=== PATIENT | male | born 1930 | race Caucasian/White ===

== ENCOUNTER 2017-03-16 22:43 | Emergency (ER) | payer MEDICARE ==
[~2017-03-16] VITALS: Ht 175.3 cm; Wt 74.6 kg
[~2017-03-16 22:43] MED LIST: ATOR10TA15 PO; DICL75TA PO; FURO20TA PO; HYDR200T3 PO; LISI-519 PO; METH2.5T PO; NIAC500T5 PO; PRED2.5T PO
[2017-03-16] MEDS ORDERED: IOHEXOL 350 MG/ML 10 ML VIAL (for RAD DIAG) IVCONTRAST ONE (22:44)
[2017-03-16 22:50] VITALS: BP 110/70; PULSE 88; RESP 16; TEMP 97.6; O2SAT 95
--- NOTE | 2017-03-16 23:40 | PD ---
HPI Chief Complaint: Dizziness Time Seen by Provider: 22:58 Travel History International Travel<30 days: No Contact w/Intl Traveler<30days: No Traveled to known affect area: No History of Present Illness HPI 87-year-old male presents to the emergency department by private transportation in the care of family for evaluation of constipation and near syncope. Patient states he is in the process of having his abdominal pain and constipation issues evaluated by his primary care provider since November. This evening after eating dinner he felt the urge to have a bowel movement and went to the bathroom and while straining to have a bowel movement he thinks he either had a near syncopal episode or syncopal episode but feels confident at this time that he did not pass out. Patient reports he did not sustain any injury does not believe but there is a small abrasion to the forehead. Patient denies any chest pain or shortness of breath. Patient denies nausea or vomiting. Patient complains of bilateral lower abdominal pain. Patient denies any back pain or pelvic pain or extremity pain. Patient states he has been having anxiety issues since 2012 when his . Patient has history of dyslipidemia, hypertension, and some type of heart disease for which she is prescribed Lasix but does not know what it is. Patient has had previous herniorrhaphy. Patient rates his current pain 0/10 intensity. PFSH Past Medical History Narrative Medical Arthritis dyslipidemia hypertension heart dysfunction diminished hearing herniorrhaphy prior tobacco use nursing notes reviewed Arthritis: Yes Cardiovascular Problems: Yes (TAKES LASIX; UNKNOWN WHY) High Cholesterol: Yes Diminished Hearing: Yes Past Surgical History Abdominal Surgery: Yes (1956---L.INGUINAL HERNIA) Tonsillectomy: Yes (1938) Social History Alcohol Use: No Tobacco Use: No Substance Use: No Allergies-Medications (Allergen,Severity, Reaction): Coded Allergies: No Known Allergies (Verified , 03/16/17) Reported Meds & Prescriptions Reported Meds & Active Scripts Active Reported Prednisone 2.5 Mg Tab 2.5 Mg PO DAILY Diclofenac Sodium DR (Diclofenac Sodium) 75 Mg Tabdr 75 Mg PO BID Methotrexate 2.5 Mg Tab 2.5 Mg PO Q7D Niacin 500 Mg Tab 500 Mg PO DAILY Hydroxychloroquine (Hydroxychloroquine Sulfate) 200 Mg Tab 200 Mg PO DAILY Takw with food Furosemide 20 Mg Tab 20 Mg PO DAILY Atorvastatin (Atorvastatin Calcium) 10 Mg Tab 10 Mg PO HS Lisinopril 5 Mg Tab 5 Mg PO DAILY Review of Systems Except as stated in HPI: all other systems reviewed are Neg General / Constitutional: No: Fever, Chills HENT: No: Congestion Cardiovascular: No: Chest Pain or Discomfort, Diaphoresis, Syncope (near syncope while straining to have a bowel movement) Respiratory: No: Shortness of Breath Gastrointestinal: Positive: Constipation, No: Nausea, Vomiting, Abdominal Pain Genitourinary: No: Dysuria Musculoskeletal: No: Myalgias, Arthralgias Skin: No Rash Neurologic: Positive: Dizziness (while straining to have BM), No: Weakness Psychiatric: No: Anxiety Hematologic/Lymphatic: No: Lymph Node Enlargement Physical Exam Narrative GENERAL: Well-developed well-nourished male in no acute distress no respiratory distress SKIN: Warm and dry. HEAD: Normocephalic. EYES: No scleral icterus. No injection or drainage. NECK: Supple, trachea midline. No JVD or lymphadenopathy. CARDIOVASCULAR: Regular rate and rhythm without murmurs, gallops, or rubs. RESPIRATORY: Breath sounds equal bilaterally. No accessory muscle use. GASTROINTESTINAL: Abdomen soft, left lower quadrant tenderness to palpation without guarding or rebound, nondistended. Rectal exam: No fissure no prolapsed hemorrhoid normal sphincter tone light brown stool large bolus of stool in the rectal vault intolerant of attempted digital disimpaction as he stated "I think going to pass out" MUSCULOSKELETAL: No cyanosis, or edema. BACK: Nontender without obvious deformity. No CVA tenderness. Data Data Last Documented VS Vital Signs Date Time Temp Pulse Resp B/P (MAP) Pulse Ox O2 Delivery O2 Flow Rate FiO2 03/16/17 23:52 74 16 135/80 (98) 75 16 134/82 (99) 71 16 118/74 (89) 03/16/17 23:17 96 03/16/17 22:50 97.6 Orders Orders Complete Blood Count With Diff (03/16/17 23:33) Comprehensive Metabolic Panel (03/16/17 23:33) Lipase (03/16/17 23:33) Lactic Acid (03/16/17 23:33) Urinalysis - C+S If Indicated (03/16/17 23:33) Ct Abd/Pel W Iv Contrast(Rout) (03/16/17 23:33) Iv Access Insert/Monitor (03/16/17 23:33) Ecg Monitoring (03/16/17 23:33) Oximetry (03/16/17 23:33) Sodium Chloride 0.9% Flush (Ns Flush) (03/16/17 23:45) Electrocardiogram (03/16/17 23:33) Troponin I (03/16/17 23:33) Orthostatic Vital Signs (03/16/17 23:33) Ct Brain W/O Iv Contrast(Rout) (03/16/17 ) Sodium Chlorid 0.9% 500 Ml Inj (Ns 500 M (03/17/17 00:30) Iohexol 350 Inj (Omnipaque 350 Inj) (03/16/17 22:44) Fleets Enema (Adult) (Fleets Enema (Adul (03/17/17 02:00) Labs Laboratory Tests Test 03/16/17 23:30 White Blood Count 9.2 TH/MM3 Red Blood Count 4.69 MIL/MM3 Hemoglobin 14.4 GM/DL Hematocrit 43.8 % Mean Corpuscular Volume 93.3 FL Mean Corpuscular Hemoglobin 30.6 PG Mean Corpuscular Hemoglobin Concent 32.9 % Red Cell Distribution Width 14.4 % Platelet Count 178 TH/MM3 Mean Platelet Volume 7.9 FL Neutrophils (%) (Auto) 87.2 % Lymphocytes (%) (Auto) 6.6 % Monocytes (%) (Auto) 4.5 % Eosinophils (%) (Auto) 0.6 % Basophils (%) (Auto) 1.1 % Neutrophils # (Auto) 8.0 TH/MM3 Lymphocytes # (Auto) 0.6 TH/MM3 Monocytes # (Auto) 0.4 TH/MM3 Eosinophils # (Auto) 0.1 TH/MM3 Basophils # (Auto) 0.1 TH/MM3 CBC Comment DIFF FINAL Differential Comment Blood Urea Nitrogen 19 MG/DL Creatinine 1.40 MG/DL Random Glucose 146 MG/DL Total Protein 6.8 GM/DL Albumin 3.3 GM/DL Calcium Level 8.6 MG/DL Alkaline Phosphatase 133 U/L Aspartate Amino Transf (AST/SGOT) 19 U/L Alanine Aminotransferase (ALT/SGPT) 26 U/L Total Bilirubin 0.8 MG/DL Sodium Level 137 MEQ/L Potassium Level 3.7 MEQ/L Chloride Level 102 MEQ/L Carbon Dioxide Level 28.4 MEQ/L Anion Gap 7 MEQ/L Estimat Glomerular Filtration Rate 48 ML/MIN Lactic Acid Level 1.1 mmol/L Troponin I LESS THAN 0.02 NG/ML Lipase 158 U/L [facility] Medical Decision Making Medical Screen Exam Complete: Yes Emergency Medical Condition: Yes Medical Record Reviewed: Yes Interpretation(s) Lactic acid: 1.1, not elevated Vital Signs Date Time Temp Pulse Resp B/P (MAP) Pulse Ox O2 Delivery O2 Flow Rate FiO2 03/16/17 23:52 74 16 135/80 (98) 75 16 134/82 (99) 71 16 118/74 (89) 03/16/17 23:17 96 03/16/17 22:50 97.6 88 16 110/70 (83) 95 CBC & BMP Diagram 03/16/17 23:30 Total Protein 6.8, Albumin 3.3 L, Calcium Level 8.6, Alkaline Phosphatase 133 H , Aspartate Amino Transf (AST/SGOT) 19, Alanine Aminotransferase (ALT/SGPT) 26, Total Bilirubin 0.8 EKG: Normal sinus rhythm rate 80 left axis deviation no acute ST elevation or injury pattern or ectopy noted CT brain w/o: CONCLUSION: 1. No acute intracranial abnormalities. 2. Mild aneurysmal dilatation of the proximal left middle cerebral artery to about 8 mm, about 6 mm on the right probably atherosclerotic in origin. No subarachnoid hemorrhage. Eleuterio Elder MD on March 17, 2017 at 1:11 Board Certified Radiologist. This report was verified electronically. CT abd/pel: CONCLUSION: 1. Moderate rectal constipation, distended to 8.4 cm. No bowel obstruction no free fluid. 2. Atrophic left kidney with small cysts. No obstructive uropathy. 3. No acute findings within the abdomen. Appendix appears normal. Eleuterio Elder MD on March 17, 2017 at 1:22 Board Certified Radiologist. This report was verified electronically. Differential Diagnosis Constipation, obstipation, diverticulitis, colitis, rectal mass, near-syncope, vasovagal syncope, arrhythmia, ACS Narrative Course IV access obtained patient placed on core worker with pulse oximetry; specimens collected and sent for resulting bedside commode provided orthostatic measurements ordered and CT abdomen and pelvis with IV contrast ordered along with CT brain noncontrast and EKG Patient given fleets enema Advice found to be grossly normal range CT abdomen and pelvis reveals no bowel obstruction large stool bolus in the rectum; CT brain noncontrast shows mild aneurysmal dilatation of the left middle cerebral artery 8 mm without evidence of bleed Patient informed of imaging results and lab results Post fleets enema patient with success and passing bowel movement: Patient is otherwise stable for outpatient management and follow-up with his primary care provider [facility] Internal Pos. & Neg. Controls: Passed Fecal Specimen Occult Blood: Negative Diagnosis Primary Impression: Constipation Qualified Codes: K59.00 - Constipation, unspecified Additional Impressions: Vasovagal near-syncope Cerebral aneurysm without rupture Referrals: Primary Care Physician call for appointment Patient Instructions: General Instructions Additional Instructions: Increase fluid hydration Add MiraLAX to daily regimen over the next 1-2 weeks May use as needed fleets enema as needed for constipation Follow-up with primary care provider Return to the emergency department for any concerns or change in condition Add dietary fiber to daily intake Med/Other Pt SpecificInfo: No Change to Meds Disposition: 01 DISCHARGE HOME Condition: Stable Natacha Hilario MD Mar 16, 2017 23:40
[2017-03-16] MEDS ORDERED: SODIUM CHLORIDE 0.9% FLUSH 10 ML FLUSH IV FLUSH PRN (23:45)
[2017-03-16 23:52] VITALS: BP_SYST 118; BP_SYST 134; BP_SYST 135; BP_DIAS 74; BP_DIAS 80; BP_DIAS 82; RESP 16
[2017-03-16 23:53] LABS: BASOPHIL # 0.1 TH/MM3 (0-0.2); BASOPHIL % 1.1 % (0.0-2.0); EOSINOPHIL # 0.1 TH/MM3 (0-0.4); EOSINOPHIL % 0.6 % (0.0-4.0); HEMATOCRIT 43.8 % (39.0-51.0); LYMPH % 6.6 % (9.0-44.0); LYMPHOCYTE # 0.6 TH/MM3 (1.0-4.8); MEAN CELL VOLUME 93.3 FL (80.0-100.0); MEAN CORPUSCULAR HEMOGLOBIN 30.6 PG (27.0-34.0); MEAN CORPUSCULAR HGB CONC 32.9 % (32.0-36.0); MONO % 4.5 % (0.0-8.0); NEUT % 87.2 % (16.0-70.0); PLATELET COUNT 178 TH/MM3 (150-450); RED BLOOD COUNT 4.69 MIL/MM3 (4.50-5.90); RED CELL DISTRIBUTION WIDTH 14.4 % (11.6-17.2); WHITE BLOOD COUNT 9.2 TH/MM3 (4.0-11.0)
[2017-03-16 23:55] LABS: HEMO FLAGS DIFF FINAL
[2017-03-17] LABS: CHLORIDE 102 MEQ/L (98-107); POTASSIUM 3.7 MEQ/L (3.5-5.1); SODIUM (NA) 137 MEQ/L (136-145)
[2017-03-17 00:03] LABS: ANION GAP 7 MEQ/L (5-15); BICARBONATE 28.4 MEQ/L (21.0-32.0); BLOOD UREA NITROGEN 19 MG/DL (7-18)
[2017-03-17 00:06] LABS: ALT (GPT) 26 U/L (12-78); AST (GOT) 19 U/L (15-37); GLOMERULAR FILTRATION RATE 48 ML/MIN (>89)
[2017-03-17 00:08] LABS: TOTAL BILIRUBIN ADULT 0.8 MG/DL (0.2-1.0)
[2017-03-17 00:09] LABS: ALKALINE PHOSPHATASE 133 U/L (45-117)
[2017-03-17] MEDS ORDERED: SODIUM CHLORID 0.9% 500 ML INJ 500 ML IV ONE (00:30)
--- NOTE | 2017-03-17 01:16 | RADRPT ---
EXAM DATE/TIME: 03/17/2017 00:44 [facility] COMPARISON: No previous studies available for comparison. INDICATIONS : Possible TIA. patient cant remember what happened to him. RADIATION DOSE: 60.88 CTDIvol (mGy) MEDICAL HISTORY : Hypercholesterolemia. SURGICAL HISTORY : Inguinal hernia repair. ENCOUNTER: Initial ACUITY: 1 day PAIN SCALE: 0/10 LOCATION: cranial TECHNIQUE: Multiple contiguous axial images were obtained of the head. Using automated exposure control and adj ustment of the mA and/or kV according to patient size, radiation dose was kept as low as reasonably a chievable to obtain optimal diagnostic quality images. DICOM format image data is available electro nically for review and comparison. FINDINGS: No acute intracranial hemorrhage, mass effect or shift. No hydrocephalus. No abnormal extra-axial flu id collections. There is some fusiform aneurysmal dilatation of the proximal left middle cerebral artery to a diamete r about 8 mm, probably atherosclerotic in origin. Proximal right middle cerebral artery also mildly d ilated to about 6 mm in diameter. No acute bony abnormalities. Visualized paranasal sinuses are clear. CONCLUSION: 1. No acute intracranial abnormalities. 2. Mild aneurysmal dilatation of the proximal left middle cerebral artery to about 8 mm, about 6 mm o n the right probably atherosclerotic in origin. No subarachnoid hemorrhage. Eleuterio Elder MD on March 17, 2017 at 1:11 Board Certified Radiologist. This report was verified electronically.
--- NOTE | 2017-03-17 01:28 | RADRPT ---
EXAM DATE/TIME: 03/17/2017 00:44 [facility] COMPARISON: No previous studies available for comparison. INDICATIONS : Constipation IV CONTRAST: 96 cc Omnipaque 350 (iohexol) IV ORAL CONTRAST: No oral contrast ingested. RADIATION DOSE: 8.37 CTDIvol (mGy) MEDICAL HISTORY : Hypercholesterolemia. SURGICAL HISTORY : Inguinal hernia repair. ENCOUNTER: Initial ACUITY: 1 day PAIN SCALE: 0/10 LOCATION: abdomen TECHNIQUE: Volumetric scanning of the abdomen and pelvis was performed. Using automated exposure control and ad justment of the mA and/or kV according to patient size, radiation dose was kept as low as reasonably achievable to obtain optimal diagnostic quality images. DICOM format image data is available electro nically for review and comparison. FINDINGS: Lung bases demonstrate minimal dependent atelectasis. No acute findings in the liver, spleen, adrenals, right kidney and pancreas. There is some cortical a trophy of the left kidney with a small cyst inferiorly. No calcified gallstones or biliary ductal dil atation. There is moderate rectal constipation which is distended to 8.4 cm. Mild constipation the remainder t he colon. No pelvic masses or adenopathy. No acute bony abnormalities. 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 CONCLUSION: 1. Moderate rectal constipation, distended to 8.4 cm. No bowel obstruction no free fluid. 2. Atrophic left kidney with small cysts. No obstructive uropathy. 3. No acute findings within the abdomen. Appendix appears normal. Eleuterio Elder MD on March 17, 2017 at 1:22 Board Certified Radiologist. This report was verified electronically.
[2017-03-17] MEDS ORDERED: SOD PHOSPHATE/SOD BIPHOSPHATE (ADULT) ENEMA 133ML RECTAL ONE (02:00)
[2017-03-17 03:15] VITALS: BP 128/72
--- NOTE | 2017-03-17 07:09 | EKG ---
Date Performed: 03/17/2017 Time Performed: 00:37:39 PTAGE: 87 years EKG: Sinus rhythm LEFT AXIS DEVIATION ABNORMAL ECG PREVIOUS TRACING : 12/07/2004 09.51 No significant change from previous tracing noted. DOCTOR: Marbin Ingram Interpretating Date/Time 03/17/2017 07:07:55
== END 2017-03-17 03:42 | disposition home or self-care (01) ==
LOC: PHED 22:43
DX: K59.00 Constipation, unspecified (principal); R55 Syncope and collapse; I67.1 Cerebral aneurysm, nonruptured; R94.31 Abnormal electrocardiogram [ECG] [EKG]; I10 Essential (primary) hypertension; E78.5 Hyperlipidemia, unspecified; H91.90 Unspecified hearing loss, unspecified ear; Z86.79 Personal history of other diseases of the circulatory system; Z87.39 Personal history of other diseases of the musculoskeletal system and connective tissue
CPT/HCPCS: 70450; 74177; 80053; 83605; 83690; 84484; 85025; 93005; 96360; 99285; J7040; Q9967

== ENCOUNTER 2017-05-11 21:47 | Emergency (ER) | payer MEDICARE ==
[~2017-05-11] VITALS: Ht 175.3 cm; Wt 77.0 kg
[2017-05-11 21:53] VITALS: BP 137/67; PULSE 60; RESP 16; TEMP 97.6; O2SAT 97
--- NOTE | 2017-05-11 22:17 | PD ---
HPI Chief Complaint: Edema Time Seen by Provider: 22:13 Travel History International Travel<30 days: No Contact w/Intl Traveler<30days: No Traveled to known affect area: No History of Present Illness HPI C/O RLE EDEMA, ONSET 1 DAY ACCORDING TO PATIENT, NOT PAINFUL, NO FEVER, NO HOGAN/CP /ABDPAIN/N/V/D/ PCP IS DR CHNOG PMHX: HTN, HYPERCHOL, (TAKES LASIX BUT UNKNOWN WHY), OSTEOPOROSIS, PFSH Past Medical History Arthritis: Yes Cardiovascular Problems: Yes (TAKES LASIX; UNKNOWN WHY) High Cholesterol: Yes Diminished Hearing: Yes Past Surgical History Abdominal Surgery: Yes (1956---L.INGUINAL HERNIA) Tonsillectomy: Yes (1938) Social History Alcohol Use: No Tobacco Use: No Substance Use: No Allergies-Medications (Allergen,Severity, Reaction): Coded Allergies: No Known Allergies (Verified Adverse Reaction, Unknown, 05/11/17) Reported Meds & Prescriptions Reported Meds & Active Scripts Active Reported Prednisone 2.5 Mg Tab 2.5 Mg PO DAILY Diclofenac Sodium DR (Diclofenac Sodium) 75 Mg Tabdr 75 Mg PO BID Methotrexate 2.5 Mg Tab 2.5 Mg PO Q7D Niacin 500 Mg Tab 500 Mg PO DAILY Hydroxychloroquine (Hydroxychloroquine Sulfate) 200 Mg Tab 200 Mg PO DAILY Takw with food Furosemide 20 Mg Tab 20 Mg PO DAILY Atorvastatin (Atorvastatin Calcium) 10 Mg Tab 10 Mg PO HS Review of Systems General / Constitutional: No: Fever Eyes: No: Visual changes HENT: No: Headaches Cardiovascular: No: Chest Pain or Discomfort Respiratory: No: Shortness of Breath Gastrointestinal: No: Abdominal Pain Genitourinary: No: Dysuria Musculoskeletal: Positive: Edema (RLE) Skin: No Rash Neurologic: No: Weakness Psychiatric: No: Depression Endocrine: No: Polydipsia Hematologic/Lymphatic: No: Easy Bruising Physical Exam Narrative GENERAL: SKIN: Warm and dry. HEAD: Atraumatic. Normocephalic. EYES: Pupils equal and round. No scleral icterus. No injection or drainage. ENT: No nasal bleeding or discharge. Mucous membranes pink and moist. NECK: Trachea midline. No JVD. CARDIOVASCULAR: Regular rate and rhythm. RESPIRATORY: No accessory muscle use. Clear to auscultation. Breath sounds equal bilaterally. GASTROINTESTINAL: Abdomen soft, non-tender, nondistended. Hepatic and splenic margins not palpable. MUSCULOSKELETAL: Extremities without clubbing, cyanosis, MILD RLE 1+ edema. No obvious deformities. NEUROLOGICAL: Awake and alert. No obvious cranial nerve deficits. Motor grossly within normal limits. Five out of 5 muscle strength in the arms and legs. Normal speech. PSYCHIATRIC: Appropriate mood and affect; insight and judgment normal. Data Data Last Documented VS Vital Signs Date Time Temp Pulse Resp B/P (MAP) Pulse Ox O2 Delivery O2 Flow Rate FiO2 05/11/17 22:32 16 97 Room Air 05/11/17 21:53 97.6 60 137/67 (90) Orders Orders Us Leg Venous Doppler (05/11/17 22:13) Complete Blood Count With Diff (05/11/17 22:13) Comprehensive Metabolic Panel (05/11/17 22:13) B-Type Natriuretic Peptide (05/11/17 22:13) Labs Laboratory Tests Test 05/11/17 22:30 White Blood Count 5.4 TH/MM3 Red Blood Count 4.10 MIL/MM3 Hemoglobin 12.8 GM/DL Hematocrit 38.4 % Mean Corpuscular Volume 93.7 FL Mean Corpuscular Hemoglobin 31.2 PG Mean Corpuscular Hemoglobin Concent 33.3 % Red Cell Distribution Width 13.9 % Platelet Count 146 TH/MM3 Mean Platelet Volume 7.8 FL Neutrophils (%) (Auto) 73.0 % Lymphocytes (%) (Auto) 16.1 % Monocytes (%) (Auto) 6.9 % Eosinophils (%) (Auto) 3.1 % Basophils (%) (Auto) 0.9 % Neutrophils # (Auto) 3.8 TH/MM3 Lymphocytes # (Auto) 0.9 TH/MM3 Monocytes # (Auto) 0.4 TH/MM3 Eosinophils # (Auto) 0.2 TH/MM3 Basophils # (Auto) 0.0 TH/MM3 CBC Comment DIFF FINAL Differential Comment Blood Urea Nitrogen 12 MG/DL Random Glucose 102 MG/DL Albumin 2.9 GM/DL Calcium Level 8.1 MG/DL Sodium Level 141 MEQ/L Potassium Level 3.5 MEQ/L Chloride Level 108 MEQ/L Carbon Dioxide Level 25.3 MEQ/L Anion Gap 8 MEQ/L [facility] Medical Decision Making Medical Screen Exam Complete: Yes Emergency Medical Condition: Yes Medical Record Reviewed: Yes Differential Diagnosis DVT V RENAL INSUFF V CHF V PERIPHERAL EDEMA Narrative Course ULTRASOUND NEG FOR DVT, NORMAL LFT'S AND NL BNP AND KIDNEY FUNCTIONS FOR AGE Diagnosis Primary Impression: Leg edema, right Referrals: Niya Chong MD FOR FURTHER CARE Patient Instructions: General Instructions, Leg Edema (ED) Additional Instructions: PLEASE FOLLOW UP WITH YOUR PRIMARY CARE DOCTOR FOR FURTHER CARE. TODAY NORMAL KIDNEY FUNCTION FOR AGE, NORMAL LIVER FUNCTIONS, ULTRASOUND NEGATIVE FOR BLOOD CLOT Disposition: 01 DISCHARGE HOME Condition: Stable Philipp Dinero MD May 11, 2017 22:17
[2017-05-11 22:48] LABS: AUTOMATED NEUTROPHIL # 3.8 TH/MM3 (1.8-7.7); BASOPHIL % 0.9 % (0.0-2.0); EOSINOPHIL # 0.2 TH/MM3 (0-0.4); EOSINOPHIL % 3.1 % (0.0-4.0); HEMATOCRIT 38.4 % (39.0-51.0); HEMO FLAGS DIFF FINAL; LYMPH % 16.1 % (9.0-44.0); LYMPHOCYTE # 0.9 TH/MM3 (1.0-4.8); MEAN CELL VOLUME 93.7 FL (80.0-100.0); MEAN CORPUSCULAR HEMOGLOBIN 31.2 PG (27.0-34.0); MEAN CORPUSCULAR HGB CONC 33.3 % (32.0-36.0); MONO % 6.9 % (0.0-8.0); PLATELET COUNT 146 TH/MM3 (150-450); RED CELL DISTRIBUTION WIDTH 13.9 % (11.6-17.2); WHITE BLOOD COUNT 5.4 TH/MM3 (4.0-11.0)
[2017-05-11 22:56] LABS: CHLORIDE 108 MEQ/L (98-107); POTASSIUM 3.5 MEQ/L (3.5-5.1); SODIUM (NA) 141 MEQ/L (136-145)
[2017-05-11 23:00] LABS: ANION GAP 8 MEQ/L (5-15); BICARBONATE 25.3 MEQ/L (21.0-32.0); BLOOD UREA NITROGEN 12 MG/DL (7-18)
--- NOTE | 2017-05-11 23:02 | RADRPT ---
EXAM DATE/TIME: 05/11/2017 22:42 [facility] COMPARISON: No previous studies available for comparison. INDICATIONS : Right foot edema. MEDICAL HISTORY : Hypercholesterolemia. Hypertension. Arthritis. Anemia. Skin cancer. SURGICAL HISTORY : Tonsillectomy. Cataract extraction. Inguinal hernia repair. Ganglian cyst extraction. ENCOUNTER: Initial ACUITY: 1 day PAIN SCORE: 4/10 LOCATION: Right leg. TECHNIQUE: Venous ultrasound of the leg was performed from the inguinal ligament to the proximal calf. Real-maddison e, color Doppler and spectral tracing, compression and augmentation techniques were used. FINDINGS: There is normal compressibility of the deep venous system from the inguinal region to the proximal ca lf. No echogenic clot is seen in the lumen of the common femoral, femoral, popliteal, and posterior tibial veins. There is a normal response of the venous system to proximal and distal augmentation an d respiration. CONCLUSION: The study is negative for deep venous thrombosis right lower extremity. Avery Puckett MD on May 11, 2017 at 23:00 Board Certified Radiologist. This report was verified electronically.
[2017-05-11 23:03] LABS: ALT (GPT) 21 U/L (12-78); AST (GOT) 15 U/L (15-37); GLOMERULAR FILTRATION RATE 63 ML/MIN (>89)
[2017-05-11 23:05] LABS: TOTAL BILIRUBIN ADULT 0.5 MG/DL (0.2-1.0)
[2017-05-11 23:06] LABS: ALKALINE PHOSPHATASE 111 U/L (45-117)
[2017-05-11 23:28] VITALS: BP 145/68
== END 2017-05-11 23:30 | disposition home or self-care (01) ==
LOC: PHED 21:47
DX: R60.0 Localized edema (principal); I10 Essential (primary) hypertension; M81.0 Age-related osteoporosis without current pathological fracture; M19.90 Unspecified osteoarthritis, unspecified site
CPT/HCPCS: 80053; 83880; 85025; 93971